=== PATIENT | male | born 1960 | race Caucasian/White ===

== ENCOUNTER → 2016-07-18 | Outpatient (CLI) | payer BC ==
[~2016-07-18] MED LIST: ALBUTEROL MININEB NEB; ALBUTEROL17 GM INH; BENICAR HCT 40-1 TAB PO; BENICAR HCT 40/1 TAB PO; BENICAR PO; BREO ELLIPTA 21 EACH INH; BRILINTA90 MG PO; CIPRO PO; CLONIDINE PO; COMBIVENT INH14.7 G1 IH; COMBIVENT INH14.7 GM INH; COMBIVENT MININEB NEB; CRESTOR PO; DILTIAZEM PO; DOXYCYCLINE150 MG PO; FLOVENT HFA12 GM INH; KEFLEX500 MG PO; METFORMIN HCL500 M1 PO; METOPROLOL SUCC25 MG PO; NEURONTIN300 MG PO; NICOTINE T1 PATCH .2 TOP; PREDNISOLONE5 MG PO; PREDNISONE PO; PRILOSEC PO; PROAIR HFA8.5 GM; PROAIR HFA8.5 GM INH; ROBITUSSIN-DM120 ML PO; TESSALON200 MG PO; TOPAMAX; TOPAMAX50 MG PO; TRESIBA FL200 UNIT/1 SUBQ; ZITHROMAX PO
--- NOTE | ~2016-07-18 | CT57 ---
[facility] A Service [facility] RADIOLOGY TEXT RESULTS PATIENT: BREE DOMINGUEZ LOCATION: [facility] : 64 UNIT #: [id number] AGE: [address]: Andrei Pardo MD SEX: M ORDER DR: [id number] [place] [id number] O MR#: [id number] Acc #: [id number] NAME: BREE DOMINGUEZ : 1960 SEX: M STUDY DATE/TIME: 07/18/2016 14:26 UNIT: [facility] ROOM: STUDY DESCRIPTION: CT Chest Wo Cont Attending Physician: Andrei Pardo M.D. Referring Physician: Andrei Pardo M.D. Ordering Physician: Andrei Pardo M.D. Primary Care Physician: Armando Longo M.D. MEDICAL IMAGING REPORT This report is preliminary unless electronic signature is present. EXAM CT chest without contrast. INDICATION Previous tracheal surgery. Tracheal stenosis. PROCEDURE Unenhanced CT of the chest. This CT exam was performed with one or more of the following radiation dose reduction techniques: automatic exposure control, adjustment of mA and/or kV according to patient size, and iterative reconstruction. COMPARISON 05/29/2016 FINDINGS There is focal narrowing of the trachea at the thoracic inlet. The focal area of narrowing measures approximately 0.81 cm in diameter. The trachea immediately below this segment measures 1.46 cm in diameter. Stenosis is approximately 44%. Findings are very similar to the previous study. Otherwise, the trachea and bronchi are normal. The lungs are clear. No adenopathy. Hepatic steatosis. No aggressive appearing bone lesion. IMPRESSION 1. Focal narrowing of the trachea at the thoracic inlet is stable. 2. No acute findings in the chest. 3. Hepatic steatosis. [facility] A [facility] RADIOLOGY TEXT RESULTS PATIENT: BREE DOMINGUEZ LOCATION: [facility] : 64 UNIT #: [id number] AGE: [address]: Andrei Pardo MD SEX: M ORDER DR: Dictated by... Krunal Chavez M.D. THIS IS AN ELECTRONICALLY VERIFIED REPORT Krunal Chavez M.D. at 07/23/2016 2:31 PM EED/evelina TD: 07/21/2016 09:43 JOB #: [id number] MEDICAL IMAGING REPORT Page 1 of 1
== END | disposition home or self-care (01) ==
LOC: SCT 14:05
DX: J39.8 Other specified diseases of upper respiratory tract (principal); J44.9 Chronic obstructive pulmonary disease, unspecified; K76.0 Fatty (change of) liver, not elsewhere classified
CPT/HCPCS: 71250